=== PATIENT | female | born 1980 | race Caucasian/White ===

== ENCOUNTER → 2016-10-20 | Outpatient (REF) | payer OTHER ==
[~2016-10-20] MED LIST: ACET50TA PO; MOTR200T44 PO; VITAPRTA PO
[2016-10-20 20:07] LABS: MEAN CORPUSCULAR HEMOGLOBIN 29.4 pg (27.0-33.0); MEAN CORPUSCULAR HGB CONC 32.4 g/dl (32.0-36.5); RED CELL DISTRIBUTION WIDTH 13.4 % (11.5-14.5); WHITE BLOOD COUNT 7.2 K/mm3 (4.0-10.0)
[2016-10-20 20:22] LABS: ALBUMIN 4.4 GM/DL (3.2-5.2); ALBUMIN/GLOBULIN RATIO 1.19 (1.00-1.93); ALKALINE PHOSPHATASE 42 U/L (45-117); ALT/SGPT 23 U/L (12-78); ANION GAP 11 MEQ/L (8-16); AST/SGOT 12 U/L (15-37); BILIRUBIN,TOTAL 0.5 MG/DL (0.2-1.0); BLOOD UREA NITROGEN 15 MG/DL (7-18); CALCIUM LEVEL 9.4 MG/DL (8.5-10.1); CARBON DIOXIDE LEVEL 27 MEQ/L (21-32); CHLORIDE LEVEL 104 MEQ/L (98-107); CREATININE FOR GFR 0.89 MG/DL (0.55-1.02); FREE T4 1.02 NG/DL (0.76-1.46); GLOMERULAR FILTRATION RATE > 60.0 (>60); GLUCOSE, FASTING 92 MG/DL (70-105); MAGNESIUM LEVEL 2.4 MG/DL (1.8-2.4); POTASSIUM SERUM 4.2 MEQ/L (3.5-5.1); SODIUM LEVEL 142 MEQ/L (136-145); TOTAL PROTEIN 8.1 GM/DL (6.4-8.2)
== END ==
LOC: M SFHCLERA 13:50
PROVIDERS: ATTEND Family Medicine
DX: L65.9 Nonscarring hair loss, unspecified (principal)

== ENCOUNTER 2017-07-27 19:27 | Emergency (ER) | payer MEDICAID, OTHER ==
[~2017-07-27] VITALS: Ht 157.5 cm; Wt 58.2 kg
[2017-07-27] MEDS ORDERED: MULT1CHW39 PO (19:32)
[2017-07-27] MEDS ORDERED: NS 1,000 ML IV ONE (20:15)
[2017-07-27 20:31] LABS: BASO # 0.1 10^3/uL (0.0-0.2); BASO % 0.8 % (0.0-1.0); EOS # 0.1 10^3/uL (0.0-0.50); EOS % 1.3 % (0.0-3.0); IMMATURE GRANULOCYTE % 0.2 % (0-0); LYMPH # 2.7 10^3/uL (1.5-4.5); LYMPH % 43.1 % (24.0-44.0); MEAN CORPUSCULAR HEMOGLOBIN 29.1 pg (27.0-33.0); MEAN CORPUSCULAR HGB CONC 33.2 g/dl (32.0-36.5); MEAN CORPUSCULAR VOLUME 87.4 fl (80.0-96.0); MONO # 0.6 10^3/uL (0.0-0.8); NEUTROPHILS # 2.8 10^3/uL (1.8-7.7); NEUTROPHILS % 45.6 % (36.0-66.0); PLATELET COUNT, AUTOMATED 266 10^3/uL (150-450); RED CELL DISTRIBUTION WIDTH 13.2 % (11.5-14.5); WHITE BLOOD COUNT 6.2 10^3/uL (4.0-10.0)
[2017-07-27 20:51] LABS: ANION GAP 6 MEQ/L (8-16); BLOOD UREA NITROGEN 14 MG/DL (7-18); CALCIUM LEVEL 9.2 MG/DL (8.5-10.1); CARBON DIOXIDE LEVEL 27 MEQ/L (21-32); CHLORIDE LEVEL 107 MEQ/L (98-107); CREATININE FOR GFR 0.87 MG/DL (0.55-1.02); GLOMERULAR FILTRATION RATE > 60.0 (>60); GLUCOSE, FASTING 96 MG/DL (70-105); POTASSIUM SERUM 3.8 MEQ/L (3.5-5.1); SODIUM LEVEL 140 MEQ/L (136-145)
--- NOTE | 2017-07-27 21:30 | REPUSA ---
Clinical history: irregular bleeding. Findings: Real-time transabdominal ultrasound images of the pelvis were obtained. An anteverted uteru s is noted, measuring 8.6 x 4.4 x 5.8 cm. The uterus demonstrates normal echotexture and echogenicit y. The endometrial stripe measures 8 mm and is within normal limits. The right ovary measure 3.8 x 2 .2 x 1.9 cm. The left ovary measures 3.2 x 2.3 x 1.9 cm. No adnexal masses are seen. Color Doppler f low is seen within both ovaries. There is a small amount of free fluid. Impression: Unremarkable ultrasound examination of the pelvis. Small amount of physiologic free fluid .
[2017-07-27 22:03] VITALS: BP 130/78
== END 2017-07-27 22:05 | disposition home or self-care (01) ==
LOC: M ED 19:27
DX: N93.9 Abnormal uterine and vaginal bleeding, unspecified (principal); Z79.899 Other long term (current) drug therapy; Z88.0 Allergy status to penicillin

== ENCOUNTER → 2017-08-20 | Outpatient (REF) | payer OTHER ==
[2017-08-22 14:13] LABS: HPV HYBRID CAPTURE II Negative (Negative)
== END ==
LOC: M LAB REF 14:33
DX: Z12.4 Encounter for screening for malignant neoplasm of cervix (principal)
CPT/HCPCS: 88142

== ENCOUNTER → 2018-07-17 | Outpatient (CLI) | payer OTHER | LOC: M LRY 13:35 | DX: L72.11 Pilar cyst (principal) | CPT/HCPCS: 76536 ==

== ENCOUNTER → 2019-08-21 | Outpatient (CLI) | payer OTHER ==
[~2019-08-21] MED LIST changes: -ACET50TA PO; +MAPA500T2 PO; +MULT200T7 PO
--- NOTE | 2019-08-21 18:56 | REP ---
Digital diagnostic bilateral mammography with CAD, 3-D tomography, and focused left breast sonography. History: Left breast tenderness and pain upper outer quadrant. No comparison imaging. Findings: Breast parenchyma is heterogeneously dense in a pattern which inhibits the sensitivity of mammography. There is no evidence of mass, architectural distortion, microcalcification, or worrisome skin change on either side. 3-D tomography images show no additional abnormality. Sonographic findings: The left breast is scanned through the upper outer quadrant from 12 o'clock to approximately 4 o'clock. Heterogeneous fibroglandular background echotexture is seen. Multiple small cysts are noted including a 5 mm cyst at 12 o'clock, a 10 mm cyst at 1 o'clock, and a 5 mm cyst at 3 o'clock. No mass lesion is seen. No architectural distortion is seen. No sonographically suspicious finding. Impression: BIRADS category 2 benign findings. Clinical follow-up is advised. BIRADS 2: BI-RADS/ACR category 2 mammogram. Benign Findings. This mammogram was interpreted with the aid of an FDA-approved computer-aided detection system. The patient states she had a clinical breast exam in August 2019. The patient letter being requested is m#[id number] This patient's estimated Tyrer-Cuzick lifetime risk assessment for the breast cancer is 9.8 %. Electronically Signed by Jose R Sanabria MD 08/21/2019 08:20 P
== END ==
LOC: M RAD 13:27
PROVIDERS: ATTEND Nurse Practitioner Family
DX: R92.2 Inconclusive mammogram (principal)
CPT/HCPCS: 76642; 77066; G0279

== ENCOUNTER → 2019-09-04 | Outpatient (CLI) | payer OTHER ==
--- NOTE | 2019-09-04 15:19 | REP ---
FOCUSED RIGHT BREAST SONOGRAPHY: HISTORY: Right breast mass, tender 10 mm mass 10-o'clock position, right breast. SONOGRAPHIC FINDINGS: Scanning of the right breast in the area of the palpable abnormality shows heterogeneous fibroglandular background echotexture. At 10-o'clock position, there is a septated cyst measuring 10 x 6 x 6 mm located 3.5 cm from the nipple. This has well-defined back wall and enhanced through transmission. IMPRESSION: BI-RADS category 2, benign findings. Clinical followup is advised. Electronically Signed by Jose R Sanabria MD 09/04/2019 04:59 P
== END ==
LOC: M RAD 11:13
PROVIDERS: ATTEND Nurse Practitioner Family
DX: N63.10 Unspecified lump in the right breast, unspecified quadrant (principal)

== ENCOUNTER → 2019-11-28 | Outpatient (CLI) | payer OTHER ==
--- NOTE | 2019-11-28 14:51 | REP ---
ULTRASOUND RIGHT BREAST: Real-time sonographic evaluation of the right breast performed and compared to prior study of 09/04/2019. At that time, a septated cyst was identified at the 10-o'clock position measuring 10 x 6 x 6 mm. Real-time sonographic evaluation of the right breast performed at 10-o'clock position and demonstrates a septated cyst probably corresponding to the previously identified cyst. It appears to have decreased in size measuring 6 x 6 x 3 mm. This is 3 cm from the nipple. In the adjacent 10 -o'clock position approximately 2 cm from the nipple is a hypoechoic nodule without significant internal blood flow with Doppler evaluation. There are diffuse internal echoes with an eccentric cystic appearance posteriorly. This may represent a complex cyst but an internal solid component cannot be excluded. This measures 5 x 5 x 3 mm. Also at the 10-o'clock position 4 cm from the nipple is an oval hypoechoic structure with diffuse internal echoes. There does not appear to be significant internal blood flow with Doppler evaluation. This measures 5 x 5 x 3 mm. This may represent a complex cyst or solid nodule. IMPRESSION: BIRADS category 4 suspicious. At the 9-o'clock position, there is again noted a cyst within internal septations which has decreased in size since the prior study, currently measuring 6 x 6 x 3 mm. However, in the adjacent 10-o'clock region of the right breast, there are two hypoechoic structures with maximum diameters of 5 mm, one is located 2 cm from the nipple and the other 4 cm from the nipple. These may represent complex cysts or solid nodules. Recommend ultrasound guided biopsy.
== END ==
LOC: M WHC 09:40
PROVIDERS: ATTEND Nurse Practitioner Family
DX: N63.10 Unspecified lump in the right breast, unspecified quadrant (principal)

== ENCOUNTER → 2019-12-15 | Outpatient (CLI) | payer OTHER ==
[~2019-12-15] MED LIST changes: +LIDOCAINE 1% MDV 20ML VIAL As Ordered ONE
[2019-12-15 10:38] VITALS: BP 130/61
--- NOTE | 2019-12-16 09:24 | REP ---
ULTRASOUND RIGHT BREAST: Real-time sonographic evaluation of the right breast performed prior to a scheduled ultrasound guided biopsy of two hypoechoic nodules at the 10-o'clock position. Both of these have a maximum diameter of 5 mm. Today's ultrasound shows two simple appearing cysts at that location measuring 5 mm in diameter. These appear anechoic and are therefore benign. Ultrasound-guided biopsy is not performed. IMPRESSION: ACR 2 benign. Two simple cysts at 10-o'clock. No solid nodule or complex cyst identified. The scheduled ultrasound-guided biopsy is cancelled. Electronically Signed by Pablo Chavarria MD 12/16/2019 09:42 A
== END ==
LOC: M IRPRO 10:05
PROVIDERS: ATTEND Family Medicine
DX: N63.10 Unspecified lump in the right breast, unspecified quadrant (principal)

== ENCOUNTER → 2019-12-25 | Outpatient (CLI) | payer OTHER ==
[~2019-12-25] MED LIST changes: -LIDOCAINE 1% MDV 20ML VIAL As Ordered ONE
--- NOTE | 2019-12-25 10:18 | REP ---
FOCUSED LEFT BREAST SONOGRAPHY: HISTORY: Lumps palpated by the patient 2-o'clock position, located 2 cm from nipple and also 2-o'clock, 5 cm from the nipple. Comparison right breast mammographic images are from August 21, 2019. SONOGRAPHIC FINDINGS: Scanning of the left breast in the 2-o'clock position at the palpable lump located 2 cm from the nipple demonstrates a cluster of simple appearing cysts within aggregate dimension of 1.2 x 1.2 x 0.7 cm. Thin septations are seen between the cystic components. There is enhanced through transmission and a well defined back wall. This is just beneath the dermis. Also at the 2-o'clock position at the site of the palpable lump located 5 cm from the nipple, there is a similar grouping of small simple cysts just beneath the dermis. Aggregate dimension for a this cluster of cysts is 0.8 x 0.5 x 0.6 cm. It too has a benign appearance. IMPRESSION: The palpable lumps correspond to clustered benign cysts. BIRADS category 2 benign findings. Clinical followup is advised.
== END ==
LOC: M WHC 08:27
PROVIDERS: ATTEND Surgery
DX: N63.20 Unspecified lump in the left breast, unspecified quadrant (principal)

== ENCOUNTER → 2020-10-12 | Outpatient (CLI) | payer OTHER ==
--- NOTE | 2020-10-12 10:31 | REP ---
INDICATION: N60.01 6 MO F/U RT BREAST CYSTS. COMPARISON: 12/15/2019. TECHNIQUE: Real-time sonographic evaluation of right breast performed. FINDINGS: Scanning is performed in the region of 10 o'clock right breast, where 2 simple cysts were seen on the prior study both measuring 5 mm in diameter. On today's exam there is a simple cyst measuring 8 x 7 x 5 mm. No other cystic or solid nodule is seen in that region. IMPRESSION: BIRADS/ACR category 2, benign. Simple cyst 10 o'clock right breast with maximum diameter 8 mm. On prior ultrasound 2 simple cysts were seen at this location both measuring 5 mm. No solid nodule is seen. RECOMMENDATION: Clinical follow-up. <Electronically signed by Pablo Chavarria > 10/12/20 [id number]
== END ==
LOC: M WHC 08:17
PROVIDERS: ATTEND Surgery
DX: N60.01 Solitary cyst of right breast (principal)

== ENCOUNTER → 2021-08-10 | Outpatient (CLI) | payer OTHER ==
--- NOTE | 2021-08-10 11:27 | REP ---
INDICATION: M54.2 CERVICALGIA COMPARISON: None. TECHNIQUE: AP, lateral, flexion/extension, bilateral oblique, and open-mouth views. FINDINGS: Alignment and lordosis is maintained. There is no evidence for acute fracture / compression injury or subluxation. No significant degenerative changes are appreciated. Oblique views demonstrate patent neural foramen. Open mouth view demonstrates normal C1-C2 articulation and odontoid process. IMPRESSION: Normal cervical spine series. <Electronically signed by Jesus Huynh > 08/10/21 [id number]
== END ==
LOC: M WUC 10:27
PROVIDERS: ATTEND Nurse Practitioner Family
DX: M54.2 Cervicalgia (principal)

== ENCOUNTER → 2021-11-03 | Outpatient (CLI) | payer OTHER | LOC: M PLAIMG 10:13 | PROVIDERS: ATTEND Orthopaedic Surgery Sports Medicine | DX: M54.2 Cervicalgia (principal) ==

== ENCOUNTER → 2022-05-24 | Outpatient (CLI) | payer OTHER | LOC: M WUC 10:39 | PROVIDERS: ATTEND Physician Assistant | DX: S23.41XA Sprain of ribs, initial encounter (principal); X58.XXXA Exposure to other specified factors, initial encounter; Y92.9 Unspecified place or not applicable ==